=== PATIENT | male | born 1970 | race Caucasian/White ===

== ENCOUNTER 2017-10-12 19:24 | Emergency (ER) | payer BC ==
[2017-10-12] MEDS ORDERED: Lidocaine 1% 20 ML MDV INJECT ONE (20:11)
[2017-10-12] MEDS ORDERED: Bacitracin Oint 1 GM U/D Packet TOP ONE (20:12)
--- NOTE | 2017-10-12 20:13 | EDM.PDOC ---
ED HPI GENERAL MEDICAL PROBLEM - General Chief Complaint: Laceration Stated Complaint: CUT ON TOP OF HEAD Time Seen by Provider: 10/12/17 20:13 Source of Information: Reports: Patient History Limitations: Reports: No Limitations - History of Present Illness INITIAL COMMENTS - FREE TEXT/NARRATIVE: pt has a circular laceration on the front of his scalp. He was working on his dock and a piece of metal cut the scalp. He was not knocked out. Onset: Today Duration: Hour(s): Location: Reports: Head Associated Symptoms: Reports: No Other Symptoms Treatments SOCK LINING EXAMINER: Reports: Cold Therapy, Dressing(s) Headache Pain Score (Numeric/FACES): 4 - Related Data Allergies Allergy/AdvReac Type Severity Reaction Status Date / Time No Known Allergies Allergy Verified 10/12/17 19:56 Home Meds: Home Meds NK [No Known Home Meds] 10/12/17 [History] Past Medical History - Infectious Disease History Infectious Disease History: Reports: Chicken Pox - Past Surgical History Musculoskeletal Surgical History: Reports: Shoulder Surgery Social & Family History - Tobacco Use Smoking Status *Q: Never Smoker Second Hand Smoke Exposure: No - Caffeine Use Caffeine Use: Reports: Coffee - Recreational Drug Use Recreational Drug Use: No ED ROS GENERAL - Review of Systems Review Of Systems: See Below Constitutional: Reports: No Symptoms HEENT: Reports: No Symptoms Respiratory: Reports: No Symptoms Cardiovascular: Reports: No Symptoms Endocrine: Reports: No Symptoms GI/Abdominal: Reports: No Symptoms : Reports: No Symptoms Skin: Reports: Other (pt has a laceration of the scalp. This is 2 inches in formerly [facility]) ED EXAM, SKIN/RASH Exam: See Below Text/Narrative:: pt arrived with a laceration of the front of the scalp 2 inches in length. Exam Limited By: No Limitations General Appearance: Alert, Anxious Ears: Normal TMs Nose: Normal Inspection Throat/Mouth: Normal Inspection Head: Other (pt has a 2 inch laceration) Respiratory/Chest: No Respiratory Distress Cardiovascular: Regular Rate, Rhythm Course - Vital Signs Last Recorded V/S: Last Vital Signs Temp 36.7 C 10/12/17 19:52 Pulse 83 10/12/17 19:52 Resp 16 10/12/17 19:52 BP 132/78 10/12/17 19:52 Pulse Ox 97 10/12/17 19:52 - Orders/Labs/Meds Meds: Medications Discontinued Medications Generic Name Dose Route Start Last Admin Trade Name Neel PRN Reason Stop Dose Admin Bacitracin 1 dose 10/12/17 20:12 10/12/17 20:19 Bacitracin Oint 1 Gm TOP 10/12/17 20:13 1 dose ONETIME ONE Administration Lidocaine HCl 20 ml 10/12/17 20:11 10/12/17 20:19 Xylocaine 1% INJECT 10/12/17 20:12 20 ml ONETIME ONE Administration - Re-Assessments/Exams Free Text/Narrative Re-Assessment/Exam: 10/12/17 20:58 pt has a circular 2 inch laceration which is actively bleeding. The area was cleaned well and infiltrated with lidocaine. The wound was closed tightly ith 3- 0 ethilon Departure - Departure Time of Disposition: 20:54 Disposition: Home, Self-Care 01 Condition: Fair Clinical Impression: Laceration - Discharge Information Referrals: Fortino Mccartney MD [Primary Care Provider] - Forms: ED Department Discharge Care Plan Goals: keep dry, sr in 7-8 days. no further ointments.
== END 2017-10-12 21:00 | disposition home or self-care (01) ==
LOC: MERGE 19:24 → JP.ED 19:24
DX: S01.01XA Laceration without foreign body of scalp, initial encounter (principal); W26.8XXA Contact with other sharp object(s), not elsewhere classified, initial encounter
CPT/HCPCS: 12002; 99283-25

== ENCOUNTER 2021-01-12 19:47 | Emergency (ER) | payer BC ==
[2021-01-12] MEDS ORDERED: EPINEPHrine 1 MG/ML SDV SUBCUT ONE (20:08)
[2021-01-12] MEDS ORDERED: diphenhydrAMINE 50 MG/ML SDV IM ONE (20:09)
[2021-01-12] MEDS ORDERED: methylPREDNISolone Sodium Succinate 125 MG/2 ML SDV IM ONE (20:09)
--- NOTE | 2021-01-12 20:11 | EDM.PDOC ---
ED HPI GENERAL MEDICAL PROBLEM - General Chief Complaint: Bite:Animal, Insect Stated Complaint: BEE STING -HIVES, ITCHING, NUMB LIPS Time Seen by Provider: 01/12/21 20:10 Source of Information: Reports: Patient History Limitations: Reports: No Limitations - History of Present Illness INITIAL COMMENTS - FREE TEXT/NARRATIVE: pt was stung on the bottm of his rt foot and he is now covered with hives. on Onset: Today, Sudden Duration: Minutes: Location: Reports: Generalized Associated Symptoms: Reports: Shortness of Breath Treatments HAND FUNNEL COATER: Reports: Other (see below) Other Treatments HAND FUNNEL COATER: [facility] allergy medication - Related Data Allergies Allergy/AdvReac Type Severity Reaction Status Date / Time No Known Allergies Allergy Verified 01/12/21 20:46 Home Meds: Home Meds Multivitamin with Minerals [Multiple Vitamin] 1 tab PO DAILY 02/16/18 [History] Tadalafil [Cialis] 0.5 - 1 tab PO ASDIRECTED PRN 02/16/18 [History] Allergy Pill 01/12/21 [History] Past Medical History - Infectious Disease History Infectious Disease History: Reports: Chicken Pox - Past Surgical History Musculoskeletal Surgical History: Reports: Shoulder Surgery Social & Family History - Family History Family Medical History: Unobtainable - Caffeine Use Caffeine Use: Reports: Coffee ED ROS GENERAL - Review of Systems Review Of Systems: See Below Constitutional: Reports: No Symptoms HEENT: Reports: No Symptoms Respiratory: Reports: Shortness of Breath Cardiovascular: Reports: No Symptoms Endocrine: Reports: No Symptoms GI/Abdominal: Reports: No Symptoms Skin: Reports: Urticaria Neurological: Reports: No Symptoms ED EXAM, ANIMAL BITE - Physical Exam Exam: See Below Text/Narrative:: pt arrived after being stung by a bee and suddenly developing hives all over and sob and tingling in his lips. Exam Limited By: No Limitations General Appearance: Alert, Anxious, Mild Distress Ears: Normal TMs Nose: Normal Inspection Throat/Mouth: Normal Inspection Head: Atraumatic Neck: Normal Inspection Respiratory/Chest: Other (mild sob) Cardiovascular: Regular Rate, Rhythm GI/Abdominal: Soft, Non-Tender (Male) Exam: Deferred Rectal (Males) Exam: Deferred Back Exam: Normal Inspection Extremities: Other (pt had generalized hives. ) Neurological: Alert, Oriented, Normal Cognition Course - Vital Signs Last Recorded V/S: Last Vital Signs Temp 35.2 C L 01/12/21 20:21 Pulse 73 01/12/21 20:33 Resp 14 01/12/21 20:33 BP 137/76 01/12/21 20:33 Pulse Ox 93 L 01/12/21 20:33 - Orders/Labs/Meds Meds: Medications Discontinued Medications Generic Name Dose Route Start Last Admin Trade Name Neel PRFarheen Reason Stop Dose Admin Diphenhydramine HCl 25 mg 01/12/21 20:09 01/12/21 20:20 Diphenhydramine 50 Mg/Ml Sdv IM 01/12/21 20:10 25 mg ONETIME ONE Administration Epinephrine HCl 0.3 mg 01/12/21 20:08 01/12/21 20:19 Epinephrine 1 Mg/Ml Sdv SUBCUT 01/12/21 20:09 0.3 mg ONETIME ONE Administration Methylprednisolone Sodium Succinate 125 mg 01/12/21 20:09 01/12/21 20:20 Methylprednisolone Sodium Succinate 125 Mg/2 Ml Sdv IM 01/12/21 20:10 125 mg ONETIME ONE Administration - Re-Assessments/Exams Free Text/Narrative Re-Assessment/Exam: 01/12/21 21:09 pt needs to carry a epipen with him in the event of a sting. Departure - Departure Time of Disposition: 21:02 Disposition: Home, Self-Care 01 Condition: Fair Clinical Impression: Allergic reaction to bee sting - Discharge Information Referrals: Fortino Mccartney MD [Primary Care Provider] - Forms: ED Department Discharge Care Plan Goals: when pt gets home take benadryl 50 mg, epipen to use with other stings, at the time the epipen is given take benadryl 50 mg. Sepsis Event Note (ED) - Focused Exam Vital Signs: Vital Signs Temp Pulse Resp BP Pulse Ox 01/12/21 20:33 73 14 137/76 93 L 01/12/21 20:21 35.2 C L 79 16 140/85 93 L
== END 2021-01-12 21:15 | disposition home or self-care (01) ==
LOC: JP.ED 19:47
DX: T63.441A Toxic effect of venom of bees, accidental (unintentional), initial encounter (principal)
CPT/HCPCS: 96372; 99282; J0171; J1200; J2930

== ENCOUNTER 2022-05-17 08:06 | Day surgery (SDC) | payer BC ==
[2022-05-17] MEDS ORDERED: Lactated Ringers 1,000 ML IV SCH (08:30)
[2022-05-17] MEDS ORDERED: fentaNYL 50 MCG/ML SDV ONE (08:48)
[2022-05-17] MEDS ORDERED: Propofol 200 MG/20 ML SDV ONE (08:48)
[2022-05-17] MEDS ORDERED: Midazolam 1 MG/ML 2 ML SDV ONE (08:48)
== END 2022-05-17 11:15 | disposition home or self-care (01) ==
LOC: JP.SDS 08:06
PROVIDERS: ATTEND Family Medicine
DX: Z12.11 Encounter for screening for malignant neoplasm of colon (principal); K57.30 Diverticulosis of large intestine without perforation or abscess without bleeding; K21.9 Gastro-esophageal reflux disease without esophagitis; Z91.030 Bee allergy status; Z79.899 Other long term (current) drug therapy
CPT/HCPCS: 45378; J2250; J2704; J3010